=== PATIENT | female | born 1985 | race African-American/Black ===

== ENCOUNTER 2016-07-28 06:29 | Emergency (ER) | payer OTHER ==
[~2016-07-28] VITALS: Ht 165.1 cm; Wt 129.0 kg
[2016-07-28 07:49] VITALS: BP 130/77
== END 2016-07-28 09:04 | disposition home or self-care (01) ==
LOC: ER 07:54
DX: J02.8 Acute pharyngitis due to other specified organisms (principal); B97.89 Other viral agents as the cause of diseases classified elsewhere; B34.9 Viral infection, unspecified; R47.02 Dysphasia; J45.909 Unspecified asthma, uncomplicated; Z88.6 Allergy status to analgesic agent; Z88.5 Allergy status to narcotic agent; Z85.038 Personal history of other malignant neoplasm of large intestine
CPT/HCPCS: 87070; 87430; 99283

== ENCOUNTER 2017-06-03 10:32 | Emergency (ER) | payer OTHER ==
[~2017-06-03] VITALS: Ht 165.1 cm; Wt 142.0 kg
[2017-06-03 14:17] LABS: BASOPHILS % 0.4 % (0.0-2.0); EOSINOPHILS % 0.5 % (0.0-5.0); HEMATOCRIT. 34.7 % (36.0-48.0); HEMOGLOBIN. 11.3 g/dL (12.0-16.0); LYMPHOCYTES % 26.6 % (20.0-50.0); MEAN CORPUSCULAR HEMOGLOBIN 27.3 pg (28.0-32.0); MEAN CORPUSCULAR VOLUME 83.8 fL (81.0-99.0); MONOCYTES % 7.2 % (2.0-8.0); NEUTROPHILS % 65.3 % (40.0-76.0); PLATELET 258 x1000/uL (130-400); RED BLOOD CELL COUNT 4.14 mill/uL (4.2-5.4); RED CELL DISTRIBUTION WIDTH 14.5 % (11.6-14.6)
[2017-06-03 14:30] LABS: CHLORIDE 106 mEq/L (98-107)
[2017-06-03] MEDS ORDERED: DIPHENHYDRAMINE 50MG/ML VIAL IM ONE (14:30)
[2017-06-03] MEDS ORDERED: SUMATRIPTAN SUCCINATE 6MG/0.5ML VIAL SUBCUT ONE (14:30)
[2017-06-03 17:53] LABS: CLARITY URINE CLEAR (CLEAR); COLOR URINE YELLOW (YELLOW); KETONES URINE NEGATIVE (NEGATIVE); LEUKOCYTE ESTERASE URINE NEGATIVE (NEGATIVE); NITRITE URINE NEGATIVE (NEGATIVE); OCCULT BLOOD URINE NEGATIVE (NEGATIVE); PROTEIN URINE NEGATIVE (NEGATIVE); SPECIFIC GRAVITY URINE 1.018 (1.005-1.030); UROBILINOGEN URINE 0.2 E.U./dL (0.2-1.0)
[2017-06-03 18:03] LABS: *AMPHETAMINES SCREEN URINE NEGATIVE (NEGATIVE); *BARBITURATES SCREEN URINE NEGATIVE (NEGATIVE); *BENZODIAZEPINES SCREEN URINE NEGATIVE (NEGATIVE); *COCAINE SCREEN URINE NEGATIVE (NEGATIVE); CANNABINOID URINE SCREEN NEGATIVE (NEGATIVE); METHADONE URINE SCREEN NEGATIVE (NEGATIVE); OPIATES URINE SCREEN NEGATIVE (NEGATIVE); PHENCYCLIDINE URINE SCREEN NEGATIVE (NEGATIVE)
[2017-06-03] MEDS ORDERED: KETOROLAC 60MG/2ML VIAL IM ONE (18:30)
[2017-06-03 19:10] VITALS: BP 156/91
== END 2017-06-03 19:12 | disposition home or self-care (01) ==
LOC: ER 10:40
DX: G43.909 Migraine, unspecified, not intractable, without status migrainosus (principal); J45.909 Unspecified asthma, uncomplicated; Z88.6 Allergy status to analgesic agent; Z88.5 Allergy status to narcotic agent
CPT/HCPCS: 36415; 70450; 80053; 80305; 81003; 81025; 85025; 93005; 96372; 99285; J1200; J3030

== ENCOUNTER 2021-02-24 20:00 | Emergency (ER) | payer MEDICAID, OTHER ==
[~2021-02-24] VITALS: Ht 165.1 cm; Wt 136.0 kg
[2021-02-24 20:15] VITALS: BP 129/78
[2021-02-25] MEDS ORDERED: TRAM50TA3 MT (16:05)
== END 2021-02-25 01:48 | disposition left against medical advice (07) ==
LOC: ER 20:00
DX: R07.89 Other chest pain (principal); Z53.21 Procedure and treatment not carried out due to patient leaving prior to being seen by health care provider
CPT/HCPCS: 93005; 99283

== ENCOUNTER 2021-02-25 07:52 | Emergency (ER) | payer OTHER, MEDICAID ==
[~2021-02-25] VITALS: Ht 167.6 cm; Wt 136.0 kg
[2021-02-25] MEDS ORDERED: ALBUTEROL (0.083%) 2.5MG/3ML NEB HHN STA (08:21)
[2021-02-25] MEDS ORDERED: MAGNESIUM/ALUMINUM HYDROXIDE/SIMETHICONE 30ML UDC PO ONE (08:30)
[2021-02-25] MEDS ORDERED: VISCOUS LIDOCAINE 2% 15 ML UDC PO ONE (08:30)
[2021-02-25 09:10] LABS: BASOPHILS % 0.3 % (0.0-2.0); EOSINOPHILS % 0.9 % (0.0-5.0); HEMOGLOBIN. 11.7 g/dL (12.0-16.0); LYMPHOCYTES % 32.3 % (20.0-50.0); MEAN CORPUSCULAR HEMOGLOBIN 27.9 pg (28.0-32.0); MEAN CORPUSCULAR VOLUME 86.1 fL (81.0-99.0); MONOCYTES % 6.5 % (2.0-8.0); PLATELET 253 x1000/uL (130-400); RED BLOOD CELL COUNT 4.18 mill/uL (4.2-5.4); RED CELL DISTRIBUTION WIDTH 15.4 % (11.6-14.6)
[2021-02-25 09:31] LABS: CHLORIDE 108 mEq/L (98-107)
[2021-02-25 09:38] LABS: HCG SCREEN INDETERMINATE
[2021-02-25] MEDS ORDERED: TRAM50TA3 MT (16:05)
[2021-02-25 16:32] VITALS: BP 137/90
[2021-02-25] MEDS ORDERED: IOHEXOL-350 100 ML BOTTLE ONE (17:20)
== END 2021-02-25 16:36 | disposition home or self-care (01) ==
LOC: ER 07:52
DX: R07.89 Other chest pain (principal); D64.9 Anemia, unspecified; Z20.822 Contact with and (suspected) exposure to COVID-19; Z88.6 Allergy status to analgesic agent; Z85.038 Personal history of other malignant neoplasm of large intestine; Z90.49 Acquired absence of other specified parts of digestive tract
CPT/HCPCS: 36415; 71045; 71275; 80053; 83690; 83880; 84484; 84702; 84703; 85025; 85379; 93005; 94640; 99285; C9803; Q9967; U0003; U0005; Z7610

== ENCOUNTER 2021-03-11 08:14 | Emergency (ER) | payer MEDICAID, OTHER ==
[~2021-03-11] VITALS: Ht 167.6 cm; Wt 136.0 kg
[~2021-03-11 08:14] MED LIST: TRAM50TA3 MT
[2021-03-11 08:49] VITALS: BP 144/85
[2021-03-11 10:08] LABS: BASOPHILS % 0.2 % (0.0-2.0); HEMATOCRIT. 34.4 % (36.0-48.0); HEMOGLOBIN. 11.4 g/dL (12.0-16.0); LYMPHOCYTES % 31.4 % (20.0-50.0); MEAN CORPUSCULAR HEMOGLOBIN 28.1 pg (28.0-32.0); MEAN CORPUSCULAR VOLUME 85.2 fL (81.0-99.0); MEAN PLATELET VOLUME 8.7 fl (7.4-10.4); MONOCYTES % 7.5 % (2.0-8.0); NEUTROPHILS % 59.9 % (40.0-76.0); PLATELET 271 x1000/uL (130-400); RED BLOOD CELL COUNT 4.04 mill/uL (4.2-5.4); RED CELL DISTRIBUTION WIDTH 15.5 % (11.6-14.6)
[2021-03-11 10:14] LABS: CLARITY URINE CLEAR (CLEAR); COLOR URINE YELLOW (YELLOW); KETONES URINE NEGATIVE (NEGATIVE); LEUKOCYTE ESTERASE URINE 2+ (NEGATIVE); NITRITE URINE NEGATIVE (NEGATIVE); OCCULT BLOOD URINE NEGATIVE (NEGATIVE); PH URINE 5.5 (4.5-8.0); PROTEIN URINE NEGATIVE (NEGATIVE); SPECIFIC GRAVITY URINE 1.023 (1.005-1.030); UROBILINOGEN URINE 0.2 E.U./dL (0.2-1.0)
[2021-03-11 10:17] LABS: CHLORIDE 109 mEq/L (98-107)
[2021-03-11 10:40] LABS: B-HCG QUANTITATIVE 3179 mIU/mL (<3)
[2021-03-11] MEDS ORDERED: METOCLOPRAMIDE HCL 10MG/2ML VIAL IV ONE (10:45)
[2021-03-11] MEDS ORDERED: NITR100C PO (11:49)
== END 2021-03-11 12:10 | disposition home or self-care (01) ==
LOC: ER 08:14
DX: O20.0 Threatened abortion (principal); Z85.038 Personal history of other malignant neoplasm of large intestine; Z90.79 Acquired absence of other genital organ(s); Z88.6 Allergy status to analgesic agent; Z88.5 Allergy status to narcotic agent; Z3A.01 Less than 8 weeks gestation of pregnancy
CPT/HCPCS: 36415; 76705; 76801; 80053; 81003; 84702; 85025; 86850; 86900; 93005; 99285

== ENCOUNTER 2021-03-15 06:10 | Emergency (ER) | payer MEDICAID, OTHER ==
[~2021-03-15] VITALS: Ht 167.6 cm; Wt 136.0 kg
[~2021-03-15 06:10] MED LIST changes: +NITR100C PO
[2021-03-15 06:45] VITALS: BP 113/68
[2021-03-15 07:58] LABS: BASOPHILS % 0.1 % (0.0-2.0); EOSINOPHILS % 0.9 % (0.0-5.0); HEMATOCRIT. 35.1 % (36.0-48.0); HEMOGLOBIN. 11.6 g/dL (12.0-16.0); LYMPHOCYTES % 25.7 % (20.0-50.0); MEAN CORPUSCULAR HEMOGLOBIN 28.1 pg (28.0-32.0); MEAN CORPUSCULAR VOLUME 85.2 fL (81.0-99.0); MEAN PLATELET VOLUME 9.1 fl (7.4-10.4); MONOCYTES % 4.9 % (2.0-8.0); NEUTROPHILS % 68.4 % (40.0-76.0); PLATELET 245 x1000/uL (130-400); RED BLOOD CELL COUNT 4.12 mill/uL (4.2-5.4); RED CELL DISTRIBUTION WIDTH 15.6 % (11.6-14.6)
[2021-03-15 08:05] LABS: CHLORIDE 106 mEq/L (98-107)
[2021-03-15 08:32] LABS: B-HCG QUANTITATIVE 8477 mIU/mL (<3)
== END 2021-03-15 09:17 ==
LOC: ER 06:10
DX: O20.0 Threatened abortion (principal); D64.9 Anemia, unspecified; J45.909 Unspecified asthma, uncomplicated; Z85.9 Personal history of malignant neoplasm, unspecified; Z87.01 Personal history of pneumonia (recurrent); Z98.890 Other specified postprocedural states; Z3A.01 Less than 8 weeks gestation of pregnancy; Z88.6 Allergy status to analgesic agent
CPT/HCPCS: 36415; 76801; 80053; 81025; 84702; 85025; 99284

== ENCOUNTER 2021-05-11 10:33 | Emergency (ER) | payer MEDICAID, OTHER ==
[~2021-05-11] VITALS: Ht 167.6 cm; Wt 141.0 kg
[2021-05-11 11:04] VITALS: BP 142/83
[2021-05-11 11:55] LABS: BASOPHILS % 0.3 % (0.0-2.0); HEMATOCRIT. 34.9 % (36.0-48.0); HEMOGLOBIN. 12.1 g/dL (12.0-16.0); LYMPHOCYTES % 29.6 % (20.0-50.0); MEAN CORPUSCULAR HEMOGLOBIN 29.2 pg (28.0-32.0); MEAN CORPUSCULAR VOLUME 84.5 fL (81.0-99.0); MONOCYTES % 8.2 % (2.0-8.0); NEUTROPHILS % 60.9 % (40.0-76.0); PLATELET 235 x1000/uL (130-400); RED BLOOD CELL COUNT 4.13 mill/uL (4.2-5.4); RED CELL DISTRIBUTION WIDTH 15.3 % (11.6-14.6)
[2021-05-11 11:58] LABS: CHLORIDE 106 mEq/L (98-107)
[2021-05-11 12:03] LABS: CLARITY URINE TURBID (CLEAR); COLOR URINE YELLOW (YELLOW); KETONES URINE 1+ (NEGATIVE); LEUKOCYTE ESTERASE URINE 3+ (NEGATIVE); NITRITE URINE NEGATIVE (NEGATIVE); OCCULT BLOOD URINE 1+ (NEGATIVE); PROTEIN URINE 1+ (NEGATIVE); UROBILINOGEN URINE 0.2 E.U./dL (0.2-1.0)
[2021-05-11 12:21] LABS: B-HCG QUANTITATIVE 21539 mIU/mL (<3)
[2021-05-11] MEDS ORDERED: CEPH500C2 MT (16:46)
== END 2021-05-11 19:13 | disposition left against medical advice (07) ==
LOC: ER 10:33
DX: O20.0 Threatened abortion (principal); O99.891 Other specified diseases and conditions complicating pregnancy; O16.2 Unspecified maternal hypertension, second trimester; R82.81 Pyuria; O26.892 Other specified pregnancy related conditions, second trimester; J45.909 Unspecified asthma, uncomplicated; Z87.828 Personal history of other (healed) physical injury and trauma; Z85.038 Personal history of other malignant neoplasm of large intestine; Z90.49 Acquired absence of other specified parts of digestive tract; Z88.6 Allergy status to analgesic agent; Z3A.14 14 weeks gestation of pregnancy
CPT/HCPCS: 36415; 76801; 80053; 81003; 81025; 84702; 85025; 86850; 86900; 99284

== ENCOUNTER 2021-07-26 01:28 | Emergency (ER) | payer OTHER ==
[~2021-07-26] VITALS: Ht 167.6 cm; Wt 145.0 kg
[~2021-07-26 01:28] MED LIST changes: +CEPH500C2 MT; +MEPERIDINE HCL/PF 25MG/ML CPJ IM NR; +PREN1TAB78 PO
[2021-07-26 05:08] VITALS: BP 137/62
== END 2021-07-26 06:20 | disposition home or self-care (01) ==
LOC: EDSTATUS 01:28 → ER 01:29
DX: S80.12XA Contusion of left lower leg, initial encounter (principal); S00.81XA Abrasion of other part of head, initial encounter; V49.49XA Driver injured in collision with other motor vehicles in traffic accident, initial encounter; Y93.89 Activity, other specified; Y92.89 Other specified places as the place of occurrence of the external cause; Y99.8 Other external cause status; D64.9 Anemia, unspecified; J45.909 Unspecified asthma, uncomplicated; Z87.01 Personal history of pneumonia (recurrent); Z85.6 Personal history of leukemia
CPT/HCPCS: 73590; 73610; 76805; 96372; 99284; J2175; 99281

== ENCOUNTER 2021-09-15 11:24 | Observation (INO) | payer OTHER ==
[~2021-09-15] VITALS: Ht 167.6 cm; Wt 143.8 kg
[~2021-09-15 11:24] MED LIST changes: -MEPERIDINE HCL/PF 25MG/ML CPJ IM NR
[2021-09-15] MEDS ORDERED: ONDANSETRON HCL 4MG/2ML INJ IV PRN (12:30)
[2021-09-15] MEDS ORDERED: MVI, ADULT NO.1 10 ML in DEXT 5%/LACTATED RINGERS 1,000 ML IV ONE ×2 (13:00)
[2021-09-15 15:01] LABS: CHLORIDE 108 mEq/L (98-107)
== END 2021-09-15 15:50 | disposition home or self-care (01) ==
LOC: 8 EST LDRP 11:24
PROVIDERS: ADMIT Specialist; ATTEND Specialist
DX: O21.2 Late vomiting of pregnancy (principal); Z20.822 Contact with and (suspected) exposure to COVID-19; Z79.899 Other long term (current) drug therapy; Z3A.32 32 weeks gestation of pregnancy
CPT/HCPCS: 36415; 80053; 87426; G0378; J2405; J3490; J7121; 59025; 96365; 96366; 96375; 99281

== ENCOUNTER 2021-10-16 20:07 | Observation (INO) | payer OTHER ==
[2021-10-16] MEDS ORDERED: ZOFRAN (21:28)
== END 2021-10-16 21:40 | disposition home or self-care (01) ==
LOC: 8 EST LDRP 20:07
PROVIDERS: ADMIT Specialist; ATTEND Specialist
DX: O62.9 Abnormality of forces of labor, unspecified (principal); Z3A.36 36 weeks gestation of pregnancy
CPT/HCPCS: 59025; G0378; 99281

== ENCOUNTER 2023-01-08 21:37 | Emergency (ER) | payer OTHER ==
[~2023-01-08] VITALS: Ht 167.6 cm; Wt 151.3 kg
[~2023-01-08 21:37] MED LIST changes: -CEPH500C2 MT; +IBUP-2030 MT; -NITR100C PO; -TRAM50TA3 MT; +ZOFRAN
[2023-01-08 22:09] VITALS: O2SAT 100
[2023-01-08 22:11] VITALS: TEMP 98.5
[2023-01-08 22:44] LABS: BASOPHILS % 0.1 % (0.0-2.0); DIFFERENTIAL COMMENT 0; EOSINOPHILS % 2.1 % (0.0-5.0); HEMATOCRIT. 31.2 % (36.0-48.0); HEMOGLOBIN. 10.1 g/dL (12.0-16.0); LYMPHOCYTES % 30.3 % (20.0-50.0); MEAN CORPUSCULAR HEMOGLOBIN 25.5 pg (28.0-32.0); MEAN CORPUSCULAR HGB CONC 32.4 g/dL (31.0-37.0); MEAN CORPUSCULAR VOLUME 78.7 fL (81.0-99.0); MONOCYTES % 7.1 % (2.0-8.0); NEUTROPHILS % 60.4 % (40.0-76.0); PLATELET 265 x1000/uL (130-400); RED BLOOD CELL COUNT 3.96 mill/uL (4.2-5.4); WHITE BLOOD COUNT 10.4 x1000/uL (4.5-11.0)
[2023-01-08 22:50] LABS: CHLORIDE 110 mEq/L (98-107); INDEX HEMOLYSI 1 (1-3); INDEX ICTERIC 1 (1-4); INDEX LIPEMIC 1 (1-3); POTASSIUM 3.4 mEq/L (3.5-5.1); SODIUM 141 mEq/L (136-145)
[2023-01-08 22:52] LABS: ALBUMIN 3.2 g/dL (3.4-5.0); CALCIUM 8.8 mg/dL (8.5-10.1); CARBON DIOXIDE 26 mEq/L (21-32); GLUCOSE 102 mg/dL (70-105); UREA NITROGEN BLOOD 11 mg/dL (7-21)
[2023-01-08 22:57] LABS: ALANINE AMINOTRANSFERASE 59 IU/L (13-61); ASPARTATE AMINOTRANSFERASE 42 IU/L (15-37); BILIRUBIN TOTAL 0.3 mg/dL (0.1-1.0); CREATININE 0.7 mg/dL (0.6-1.3); PROTEIN TOTAL 7.3 g/dL (6.0-8.3)
[2023-01-08 23:13] LABS: HCG SCREEN NEGATIVE
[2023-01-08 23:24] LABS: LACTIC ACID 2.2 mmol/L (0.4-2.0)
[2023-01-09] MEDS ORDERED: IOHEXOL-300 100 ML BOTTLE ONE (05:23)
[2023-01-09 09:25] VITALS: BP 134/80; PULSE 79; RESP 17
== END 2023-01-09 09:29 | disposition home or self-care (01) ==
LOC: ER 21:37
DX: R10.84 Generalized abdominal pain (principal); J45.909 Unspecified asthma, uncomplicated; Z85.038 Personal history of other malignant neoplasm of large intestine; Z98.890 Other specified postprocedural states; Z88.6 Allergy status to analgesic agent; Z88.5 Allergy status to narcotic agent; Z88.8 Allergy status to other drugs, medicaments and biological substances
CPT/HCPCS: 99285; 80053; 84703; 83605 ×2; 83690; 85025; 36415; 74177; Q9967

== ENCOUNTER 2023-03-23 20:57 | Emergency (ER) | payer OTHER ==
[~2023-03-23] VITALS: Ht 170.2 cm; Wt 106.0 kg
[2023-03-23 21:37] VITALS: TEMP 98.4; O2SAT 98
[2023-03-23 23:11] LABS: BASOPHILS % 0.1 % (0.0-2.0); DIFFERENTIAL COMMENT 0; EOSINOPHILS % 0.5 % (0.0-5.0); HEMATOCRIT. 29.7 % (36.0-48.0); HEMOGLOBIN. 9.5 g/dL (12.0-16.0); LYMPHOCYTES % 13.1 % (20.0-50.0); MEAN CORPUSCULAR HEMOGLOBIN 25.1 pg (28.0-32.0); MEAN CORPUSCULAR VOLUME 78.5 fL (81.0-99.0); MEAN PLATELET VOLUME 8.5 fl (7.4-10.4); MONOCYTES % 7.1 % (2.0-8.0); NEUTROPHILS % 79.2 % (40.0-76.0); PLATELET 259 x1000/uL (130-400); RED BLOOD CELL COUNT 3.79 mill/uL (4.2-5.4); RED CELL DISTRIBUTION WIDTH 17.1 % (11.6-14.6); WHITE BLOOD COUNT 10.1 x1000/uL (4.5-11.0)
[2023-03-23 23:22] LABS: ALANINE AMINOTRANSFERASE 17 IU/L (10-49); ALBUMIN 3.8 g/dL (3.2-4.8); ASPARTATE AMINOTRANSFERASE 20 IU/L (<34); BILIRUBIN TOTAL 0.8 mg/dL (0.1-1.0); CALCIUM 8.6 mg/dL (8.7-10.4); CARBON DIOXIDE 22 mEq/L (21-32); CHLORIDE 108 mEq/L (98-107); CREATININE 0.7 mg/dL (0.6-1.0); GLUCOSE 108 mg/dL (70-105); POTASSIUM 3.7 mEq/L (3.5-5.1); SODIUM 138 mEq/L (136-145); UREA NITROGEN BLOOD 9 mg/dL (9-23)
[2023-03-23 23:25] LABS: HCG SCREEN NEGATIVE
[2023-03-24 00:12] LABS: CLARITY URINE CLOUDY (CLEAR); COLOR URINE YELLOW (YELLOW); GLUCOSE URINE NEGATIVE (NEGATIVE); KETONES URINE TRACE (NEGATIVE); LEUKOCYTE ESTERASE URINE NEGATIVE (NEGATIVE); NITRITE URINE POSITIVE (NEGATIVE); OCCULT BLOOD URINE NEGATIVE (NEGATIVE); PH URINE 5.5 (4.5-8.0); PROTEIN URINE 1+ (NEGATIVE); SPECIFIC GRAVITY URINE 1.035 (1.005-1.030)
[2023-03-24 00:15] LABS: BACTERIA URINE 4+; SQUAMOUS EPITHELIAL CELL URINE 1+ /lpf (RARE/1+); YEAST URINE NONE SEEN
[2023-03-24] MEDS ORDERED: CEPHALEXIN 250MG CAPSULE PO ONE (01:00)
[2023-03-24 01:02] LABS: AMORPHOUS SEDIMENT URINE 2+ /lpf
[2023-03-24] MEDS ORDERED: TRAMADOL 50MG TABLET PO ONE (01:15)
[2023-03-24 01:20] VITALS: BP 151/91; PULSE 92; RESP 18
[2023-03-24] MEDS ORDERED: CEPH500C2 MT (01:37)
[2023-03-24] MEDS ORDERED: TRAM50TA3 PO (01:37)
[2023-03-24] MEDS ORDERED: FERR324T4 MT (01:38)
== END 2023-03-24 03:37 | disposition home or self-care (01) ==
LOC: ER 20:57
DX: N39.0 Urinary tract infection, site not specified (principal); R10.32 Left lower quadrant pain; D50.9 Iron deficiency anemia, unspecified; J45.909 Unspecified asthma, uncomplicated; Z85.038 Personal history of other malignant neoplasm of large intestine; Z98.890 Other specified postprocedural states; Z88.6 Allergy status to analgesic agent; Z88.5 Allergy status to narcotic agent; Z88.8 Allergy status to other drugs, medicaments and biological substances
CPT/HCPCS: 36415; 74176; 80053; 81003; 84703; 85025; 99284